=== PATIENT | female | born 1980 | race Hispanic/Latino ===

== ENCOUNTER → 2017-09-21 | Outpatient (CLI) | payer OTHER | END | disposition home or self-care (01) | LOC: RAH 11:08 | DX: N83.202 Unspecified ovarian cyst, left side (principal); N88.8 Other specified noninflammatory disorders of cervix uteri | CPT/HCPCS: 76830 ==

== ENCOUNTER 2017-10-18 06:56 | Day surgery (SDC) | payer OTHER ==
[2017-10-17 14:52] LABS: BASOPHILS % (AUTO) 0.5 % (0.0-5.0); EOSINOPHILS % (AUTO) 1.8 % (0.0-8.0); HEMATOCRIT 38.7 % (36-48); LYMPHOCYTES % (AUTO) 20.7 % (21.0-51.0); MEAN CORPUSCULAR HEMOGLOBIN 30.2 pg (27.0-33.0); MEAN CORPUSCULAR HGB CONC 34.6 g/dL (32.0-36.0); MEAN CORPUSCULAR VOLUME 87.4 fL (79-99); NUCLEATED RED BLOOD CELLS 0.1 % (0.0-0.19); PLATELET COUNT (AUTO) 253 K/uL (130-400); RED BLOOD CELL COUNT(AUTO) 4.43 MIL/uL (4.00-5.50); RED CELL DISTRIBUTION WIDTH 13.2 % (11.0-15.5); WHITE BLOOD COUNT (AUTO) 8.3 K/uL (4.8-10.8)
[2017-10-17 15:01] VITALS: BP 110/64
[~2017-10-18] VITALS: Ht 162.6 cm; Wt 68.8 kg
[2017-10-18] VITALS (13 sets, daily range): BP systolic 94–122; BP diastolic 46–80
[2017-10-18] MEDS: CEFAZOLIN SODIUM 1 GM VIAL IVP SCH ×2 (06:00→08:26)
[~2017-10-18 06:56] MED LIST: CALDOLOR 800MG+NS 250ML 250 ML IV SCH; LACTATED RINGERS 1000ML 1,000 ML IV SCH
[2017-10-18] MEDS ORDERED: MIDAZOLAM HCL 1 MG/ML 2ML VIAL ONE ×3 (07:27→08:19)
[2017-10-18] MEDS ORDERED: PROPOFOL 10 MG/ML 20ML VIAL IV ONE (07:27)
[2017-10-18] MEDS ORDERED: DEXAMETHASONE SOD PHOSPHATE 10MG/ML 1ML VIAL ONE (07:27)
[2017-10-18] MEDS ORDERED: GLYCOPYRROLATE 0.2 MG/ML 5 ML VIAL ONE (07:27)
[2017-10-18] MEDS ORDERED: LIDOCAINE PF 2% 5ML ABBOJECT ONE (07:27)
[2017-10-18] MEDS ORDERED: FENTANYL CITRATE PF 50 MCG/1 ML 2ML VIAL ONE (07:28)
== END 2017-10-18 11:08 | disposition home or self-care (01) ==
LOC: DAH 06:56 → EDSTATUS 14:00
PROVIDERS: ATTEND Obstetrics & Gynecology
DX: N92.1 Excessive and frequent menstruation with irregular cycle (principal); N90.89 Other specified noninflammatory disorders of vulva and perineum; N81.10 Cystocele, unspecified
CPT/HCPCS: 36415; 84703; 85025; 86850; 86900; 86901; 88305; A4218; A4351; A4355; J0690; J1100; J1741; J2001; J2250; J2704; J3010; J3490; J7030; J7120

== ENCOUNTER → 2017-11-14 | Outpatient (CLI) | payer OTHER ==
[2017-11-14 07:58] LABS: BASOPHILS % (AUTO) 0.4 % (0.0-5.0); EOSINOPHILS % (AUTO) 1.9 % (0.0-8.0); HEMATOCRIT 38.8 % (36-48); LYMPHOCYTES % (AUTO) 19.9 % (21.0-51.0); MEAN CORPUSCULAR HEMOGLOBIN 29.5 pg (27.0-33.0); MEAN CORPUSCULAR VOLUME 86.9 fL (79-99); MONOCYTES % (AUTO) 9.5 % (3.0-13.0); NEUTROPHILS % (AUTO) 68.3 % (40.0-77.0); PLATELET COUNT (AUTO) 250 K/uL (130-400); RED BLOOD CELL COUNT(AUTO) 4.46 MIL/uL (4.00-5.50); WHITE BLOOD COUNT (AUTO) 6.5 K/uL (4.8-10.8)
[2017-11-14 08:20] LABS: ALBUMIN 3.7 g/dL (3.5-5.0); BILIRUBIN,TOTAL 0.3 mg/dL (0.2-1.0); CREATININE 0.8 mg/dL (0.5-1.5); POTASSIUM 4.7 mmol/L (3.5-5.1); THYROID STIMULATING HORMONE 1.73 uIU/mL (0.36-3.74); TOTAL PROTEIN, SERUM 7.1 g/dL (6.0-8.3)
== END | disposition home or self-care (01) ==
LOC: LAB 07:29
PROVIDERS: ATTEND Family Medicine
DX: Z00.01 Encounter for general adult medical examination with abnormal findings (principal); R53.83 Other fatigue; R79.89 Other specified abnormal findings of blood chemistry
CPT/HCPCS: 36415; 80053; 80061; 82306; 84443; 85025

== ENCOUNTER → 2017-12-06 | Outpatient (CLI) | payer OTHER | END | disposition home or self-care (01) | LOC: RAH 07:10 | PROVIDERS: ATTEND Neurological Surgery | DX: M50.122 Cervical disc disorder at C5-C6 level with radiculopathy (principal); M79.601 Pain in right arm; R20.0 Anesthesia of skin | CPT/HCPCS: 72141 ==

== ENCOUNTER → 2018-05-08 | Outpatient (CLI) | payer OTHER | END | disposition home or self-care (01) | LOC: RAH 09:50 | PROVIDERS: ATTEND Physical Medicine & Rehabilitation | DX: R20.2 Paresthesia of skin (principal) | CPT/HCPCS: 70551 ==

== ENCOUNTER → 2019-03-12 | Outpatient (CLI) | payer OTHER ==
[2019-03-12 08:18] LABS: BASOPHILS % (AUTO) 0.5 % (0.0-5.0); EOSINOPHILS % (AUTO) 1.6 % (0.0-8.0); HEMATOCRIT 41.9 % (36-48); LYMPHOCYTES % (AUTO) 19.6 % (21.0-51.0); MEAN CORPUSCULAR HEMOGLOBIN 29.9 pg (27.0-33.0); MEAN CORPUSCULAR HGB CONC 34.2 g/dL (32.0-36.0); MEAN CORPUSCULAR VOLUME 87.4 fL (79-99); MONOCYTES % (AUTO) 8.1 % (3.0-13.0); NEUTROPHILS % (AUTO) 70.2 % (40.0-77.0); PLATELET COUNT (AUTO) 259 K/uL (130-400); RED BLOOD CELL COUNT(AUTO) 4.79 MIL/uL (4.00-5.50); RED CELL DISTRIBUTION WIDTH 12.9 % (11.0-15.5); WHITE BLOOD COUNT (AUTO) 6.3 K/uL (4.8-10.8)
[2019-03-12 08:48] LABS: BILIRUBIN,TOTAL 0.5 mg/dL (0.2-1.0); CREATININE 0.9 mg/dL (0.5-1.5); POTASSIUM 4.2 mmol/L (3.5-5.1); THYROID STIMULATING HORMONE 1.99 uIU/mL (0.36-3.74); TOTAL PROTEIN, SERUM 7.6 g/dL (6.0-8.3)
== END | disposition home or self-care (01) ==
LOC: LAB 07:56
PROVIDERS: ATTEND Nurse Practitioner Adult Health
DX: Z00.00 Encounter for general adult medical examination without abnormal findings (principal)
CPT/HCPCS: 36415; 80053; 80061; 82306; 84443; 85025

== ENCOUNTER → 2019-08-15 | Outpatient (CLI) | payer OTHER | END | disposition home or self-care (01) | LOC: RAH 10:05 | PROVIDERS: ATTEND Nurse Practitioner Adult Health | DX: N88.8 Other specified noninflammatory disorders of cervix uteri (principal); N81.4 Uterovaginal prolapse, unspecified | CPT/HCPCS: 76856 ==

== ENCOUNTER 2019-11-05 13:00 | Observation (INO) | payer OTHER ==
[~2019-11-05] VITALS: Ht 157.5 cm; Wt 69.5 kg
[2019-11-05 15:40] VITALS: BP 127/74
[2019-11-05 16:02] LABS: BASOPHILS % (AUTO) 0.4 % (0.0-5.0); EOSINOPHILS % (AUTO) 1.6 % (0.0-8.0); HEMATOCRIT 39.9 % (36-48); LYMPHOCYTES % (AUTO) 24.2 % (21.0-51.0); MEAN CORPUSCULAR HGB CONC 33.1 g/dL (32.0-36.0); MEAN CORPUSCULAR VOLUME 87.7 fL (79-99); MONOCYTES % (AUTO) 6.8 % (3.0-13.0); NEUTROPHILS % (AUTO) 66.7 % (40.0-77.0); PLATELET COUNT (AUTO) 240 K/uL (130-400); RED BLOOD CELL COUNT(AUTO) 4.55 MIL/uL (4.00-5.50); RED CELL DISTRIBUTION WIDTH 12.3 % (11.0-15.5); WHITE BLOOD COUNT (AUTO) 7.5 K/uL (4.8-10.8)
[2019-11-06] VITALS (24 sets, daily range): BP systolic 100–116; BP diastolic 47–70
[2019-11-06] MEDS ORDERED: PROPOFOL 10 MG/ML 20ML VIAL IV ONE (06:07)
[2019-11-06] MEDS ORDERED: LIDOCAINE PF 2% 5ML ABBOJECT ONE (06:07)
[2019-11-06] MEDS ORDERED: ROCURONIUM 10MG/1ML SYR 10 MG/ML ML ONE (06:08)
[2019-11-06] MEDS ORDERED: ONDANSETRON HCL 4 MG/2 ML VIAL ONE (06:08)
[2019-11-06] MEDS ORDERED: FENTANYL CITRATE PF 50 MCG/1 ML 2ML VIAL ONE ×2 (06:10→07:58)
[2019-11-06] MEDS ORDERED: MIDAZOLAM HCL 1 MG/ML 5ML VIAL ONE (06:15)
[2019-11-06] MEDS ORDERED: LACTATED RINGERS 1000ML 1,000 ML IV ONE (06:15)
[2019-11-06] MEDS: CEFAZOLIN SODIUM 1 GM VIAL ONE ×2 (06:38→07:00)
[2019-11-06] MEDS ORDERED: EPHEDRINE SULFATE 50 MG/ML AMPULE ONE (07:06)
[2019-11-06] MEDS ORDERED: GLYCOPYRROLATE 1 MG/5 ML SYRINGE ONE (07:57)
[2019-11-06] MEDS ORDERED: DEXAMETHASONE SOD PHOSPHATE 10MG/ML 1ML VIAL ONE (07:57)
[2019-11-06] MEDS ORDERED: ESTROGENS,CONJUGATED 0.625 MG/GM 42.5 GM VAG CRM VG ONE (07:57)
[2019-11-06] MEDS ORDERED: NEOSTIGMINE 5MG/5ML SYR IV ONE (07:57)
[2019-11-06] MEDS ORDERED: LACTATED RINGERS 1000ML 1,000 ML IV SCH (08:00)
[2019-11-06] MEDS ORDERED: CEFAZOLIN SODIUM 1 GM VIAL IVP ONE (08:00)
[2019-11-06] MEDS ORDERED: DOCUSATE SODIUM 100 MG CAP PO PRN (09:45)
[2019-11-06] MEDS ORDERED: MEPERIDINE HCL/PF 25 MG/0.5 ML AMPUL IV PRN (09:45)
[2019-11-06] MEDS ORDERED: PROMETHAZINE HCL 25 MG/ML 1ML AMPULE IM PRN ×2 (09:45)
[2019-11-06] MEDS ORDERED: BISACODYL 10 MG SUPP.RECT RC PRN (09:45)
[2019-11-06] MEDS ORDERED: SIMETHICONE 80 MG TAB.CHEW PO PRN (09:45)
[2019-11-06] MEDS ORDERED: IBUPROFEN 600 MG TABLET PO PRN (09:45)
[2019-11-06] MEDS ORDERED: ONDANSETRON HCL 4 MG/2 ML VIAL IVP PRN (09:45)
[2019-11-06] MEDS ORDERED: MEPERIDINE-PF 75 MG/ML SYG IM PRN (09:45)
[2019-11-06] MEDS ORDERED: ACETAMINOPHEN-CODEINE 300/30MG TAB PO PRN (09:45)
[2019-11-06] MEDS ORDERED: CALDOLOR 800MG+NS 250ML 250 ML IV PRN (09:45)
[2019-11-06] MEDS ORDERED: DiphenhydrAMINE HCL 50 MG/ML VIAL IVP PRN (09:45)
[2019-11-06] MEDS ORDERED: NALOXONE HCL 0.4 MG/1 ML ML IVP PRN ×2 (09:45)
[2019-11-06] MEDS: DEXTROSE 5 %-0.45 % NACL 1,000 ML IV PRN ×3 (11:14→23:34)
--- NOTE | 2019-11-06 11:20 | NUR ---
bleeding noted on epidural site. notified nadeem Mart crna. he said he will let somebody check it Addendum: 11/06/19 at 1143 by LORELEI GOMEZ RN Amended: Links added.
--- NOTE | 2019-11-06 11:29 | NUR ---
PATIENT ORIENTED TO ROOM. NO PAIN REPORTED. EPIDURAL IN PLACE AND INFUSING. OB PAD CLEAN AND DRY. VAGINAL PACKING IN PLACE. ADVISED PATIENT TO CALL WITH ANY NEEDS OR CONCERNS. CALL LIGHT LEFT IN REACH. PATIENT VOICED UNDERSTANDING. Addendum: 11/06/19 at 1130 by CARISA IBARRA LVN LVN PATIENT ARRIVED TO UNIT VIA BED FROM PACU ACCOMPANIED BY JIMMY TRIPATHI AT 0934.
--- NOTE | 2019-11-06 11:50 | NUR ---
aliya Mart crna checked dressing on epidural catheter, with bleeding and blood clot noted to site, replaced with new tegaderm. Addendum: 11/06/19 at 1202 by LORELEI GOMEZ RN Amended: Links added.
[2019-11-06] MEDS: CEFAZOLIN SODIUM 1 GM VIAL IVP SCH ×2 (16:02→23:33)
[2019-11-06] MEDS ORDERED: DURAMORPH PF1 MG/ML 10ML AMP IV ONE (16:43)
[2019-11-06] MEDS ORDERED: ROPIVACAINE 0.2% 100ML VIAL 100 ML EP SCH (17:30)
[2019-11-07 04:35] VITALS: BP 108/61
[2019-11-07 07:09] LABS: HEMATOCRIT 38.1 % (36-48); MEAN CORPUSCULAR HEMOGLOBIN 28.8 pg (27.0-33.0); MEAN CORPUSCULAR HGB CONC 33.1 g/dL (32.0-36.0); MEAN CORPUSCULAR VOLUME 87.2 fL (79-99); RED BLOOD CELL COUNT(AUTO) 4.37 MIL/uL (4.00-5.50); RED CELL DISTRIBUTION WIDTH 12.2 % (11.0-15.5); WHITE BLOOD COUNT (AUTO) 13.2 K/uL (4.8-10.8)
[2019-11-07 07:20] VITALS: BP 122/70
--- NOTE | 2019-11-07 08:25 | NUR ---
goel catheter removed, tip intact, vaginal packing removed, pericare done, informed pt to call for assistance to the bathroom, pt voiced understanding. Addendum: 11/07/19 at 0835 by LORELEI GOMEZ RN Amended: Links added.
[2019-11-07] MEDS ORDERED: ACETAMINOPHEN-CODEINE 300/30MG TAB ONE (09:52)
[2019-11-07] MEDS ORDERED: ACETAMINOPHEN-CODEINE 300/30MG TAB PO PRN (10:00)
[2019-11-07] MEDS ORDERED: ACET1TAB25 PO (10:21)
--- NOTE | 2019-11-07 10:50 | NUR ---
verbal and written discharge instructions given, informed of the follow up appointment, prescription given, all questions answered. informed to call the doctor for future concerns. pt voiced understanding to all things discussed. Addendum: 11/07/19 at 1110 by LORELEI GOMEZ RN Amended: Links added.
--- NOTE | 2019-11-07 11:07 | NUR ---
pt is dismissed in stable condition, brought to private car via wheelchair by cosme Mart pcp Addendum: 11/07/19 at 1108 by LORELEI GOMEZ RN Amended: Links added.
== END 2019-11-07 11:10 | disposition home or self-care (01) ==
LOC: DAHIP 11-06 06:10 → WSH 11-06 09:30 → EDSTATUS 11-06 13:00
PROVIDERS: ADMIT Obstetrics & Gynecology; ATTEND Obstetrics & Gynecology
DX: N81.2 Incomplete uterovaginal prolapse (principal); N94.12 Deep dyspareunia; N94.5 Secondary dysmenorrhea
CPT/HCPCS: 36415 ×2; 58260; 84703; 85025; 85027; 86850; 86900; 86901; 96365; 96366; 96375; 96376; A4213; A4215; A4221; A4222; A4223; A4344; A4351; A4510; A4600; A4663; A4930; G0378 ×25; J0690 ×4; J1100; J1741; J2001; J2250; J2274; J2405; J2704; J2710; J2795; J3010 ×2; J3490 ×2; J7120 ×2

== ENCOUNTER → 2020-01-29 | Outpatient (CLI) | payer OTHER ==
[~2020-01-29] MED LIST changes: +ACET1TAB25 PO; -CALDOLOR 800MG+NS 250ML 250 ML IV SCH; -LACTATED RINGERS 1000ML 1,000 ML IV SCH
[2020-01-29 11:54] LABS: APPEARANCE,URINE Clear (CLEAR); BILIRUBIN,URINE Negative (NEGATIVE); COLOR,URINE Yellow (YELLOW); GLUCOSE, URINE (UA) Negative (NEGATIVE); KETONES,URINE Trace mg/dL (NEGATIVE); LEUKOCYTE ESTERASE ,URINE Negative (NEGATIVE); NITRATE,URINE Negative (NEGATIVE); OCCULT BLOOD,URINE Negative (NEGATIVE); PROTEIN,URINE Negative (NEGATIVE)
[2020-01-29 12:03] LABS: BACTERIA,URINE Rare /HPF (None Seen); RBC,URINE 0-1 /HPF (0-1); SQUAMOUS EPITHELIAL CELL,UR Rare /HPF (0-2); WBC,URINE 0-1 /HPF (0-1)
== END | disposition home or self-care (01) ==
LOC: LAB 11:18
PROVIDERS: ATTEND Nurse Practitioner Adult Health
DX: R82.79 Other abnormal findings on microbiological examination of urine (principal)
CPT/HCPCS: 81001; 87088

== ENCOUNTER → 2020-01-30 | Outpatient (CLI) | payer OTHER | END | disposition home or self-care (01) | LOC: RAH 07:30 | PROVIDERS: ATTEND Nurse Practitioner Adult Health | DX: R31.9 Hematuria, unspecified (principal) | CPT/HCPCS: 76770 ==

== ENCOUNTER 2021-05-05 10:16 | Emergency (ER) | payer OTHER ==
[~2021-05-05] VITALS: Ht 157.5 cm; Wt 72.6 kg
[2021-05-05 10:17] VITALS: BP 137/83
[2021-05-05] MEDS ORDERED: IBUPROFEN 200 MG TAB ONE (11:26)
[2021-05-05] MEDS ORDERED: IBUPROFEN 600 MG TABLET PO ONE (12:00)
== END 2021-05-05 11:50 | disposition home or self-care (01) ==
LOC: EDH 10:16
DX: S50.12XA Contusion of left forearm, initial encounter (principal); S50.02XA Contusion of left elbow, initial encounter; S60.212A Contusion of left wrist, initial encounter; W01.0XXA Fall on same level from slipping, tripping and stumbling without subsequent striking against object, initial encounter; Y93.89 Activity, other specified; Y92.89 Other specified places as the place of occurrence of the external cause; Y99.8 Other external cause status
CPT/HCPCS: 73070; 73110; 73120

== ENCOUNTER 2021-06-09 20:48 | Emergency (ER) | payer OTHER ==
[~2021-06-09] VITALS: Ht 157.5 cm; Wt 72.6 kg
[2021-06-09] MEDS ORDERED: FAMOTIDINE 20MG VIAL IV ONE (22:30)
[2021-06-09] MEDS ORDERED: LIDOCAINE HCL 2% VISCOUS 15 ML UDCUP PO ONE ×2 (22:30→23:00)
[2021-06-09] MEDS ORDERED: ONDANSETRON 4MG INJ IVP ONE (22:30)
[2021-06-09] MEDS ORDERED: PANTOPRAZOLE 40 MG/VIAL IVP ONE (22:30)
[2021-06-09] MEDS ORDERED: METOCLOPRAMIDE 10 MG/2 ML VIAL IVP ONE (22:30)
[2021-06-09] MEDS ORDERED: DiphenhydrAMINE HCL 50 MG/ML VIAL IV ONE (22:30)
[2021-06-09] MEDS ORDERED: MAG/ALUM/SIMETH 30 ML UDCUP PO ONE (22:30)
[2021-06-09 22:48] LABS: BASOPHILS % (AUTO) 0.2 % (0.0-5.0); EOSINOPHILS % (AUTO) 2.1 % (0.0-8.0); HEMATOCRIT 40.6 % (36-48); LYMPHOCYTES % (AUTO) 27.1 % (21.0-51.0); MEAN CORPUSCULAR HEMOGLOBIN 29.3 pg (27.0-33.0); MEAN CORPUSCULAR VOLUME 88.8 fL (79-99); MONOCYTES % (AUTO) 8.3 % (3.0-13.0); NEUTROPHILS % (AUTO) 62.2 % (40.0-77.0); PLATELET COUNT (AUTO) 241 K/uL (130-400); RED BLOOD CELL COUNT(AUTO) 4.57 MIL/uL (4.00-5.50); RED CELL DISTRIBUTION WIDTH 12.1 % (11.0-15.5); WHITE BLOOD COUNT (AUTO) 8.1 K/uL (4.8-10.8)
[2021-06-09 22:57] LABS: CREATININE 0.9 mg/dL (0.5-1.5); POTASSIUM 4.1 mmol/L (3.5-5.1)
[2021-06-09 23:02] LABS: BILIRUBIN,TOTAL 0.3 mg/dL (0.2-1.0); TOTAL PROTEIN, SERUM 7.4 g/dL (6.0-8.3)
[2021-06-09] MEDS ORDERED: ONDA4TAB10 PO (23:42)
[2021-06-09] MEDS ORDERED: DICY20TA2 PO (23:42)
[2021-06-09] MEDS ORDERED: PANT40TA PO (23:42)
[2021-06-09] MEDS ORDERED: METO-296 PO (23:42)
[2021-06-10 00:06] VITALS: BP 131/70
== END 2021-06-10 00:13 | disposition home or self-care (01) ==
LOC: EDH 20:48
DX: K29.70 Gastritis, unspecified, without bleeding (principal); Z79.899 Other long term (current) drug therapy
CPT/HCPCS: 36415; 71045; 80053; 84484; 85025; 93005; 96374; 96375; 99284; C9113; J1200; J2405; J2765

== ENCOUNTER 2022-05-29 10:30 | Day surgery (SDC) | payer OTHER ==
[2022-05-29] VITALS (9 sets, daily range): BP systolic 94–115; BP diastolic 52–65
[~2022-05-29] VITALS: Ht 157.5 cm; Wt 70.8 kg
[~2022-05-29 10:30] MED LIST changes: -ACET1TAB25 PO; +PANT40TA PO; +SUCR1TAB2 PO; +vitamin D3
[2022-05-29] MEDS ORDERED: 0.9%NACL 1000ML 1,000 ML IV ONE (10:42)
[2022-05-29] MEDS ORDERED: LIDOCAINE PF 100MG/5ML (2%) SYRINGE 5ML ONE (11:16)
[2022-05-29] MEDS ORDERED: PROPOFOL 10 MG/ML 20ML VIAL IV ONE (11:16)
[2022-05-29] MEDS ORDERED: MIDAZOLAM HCL 1 MG/ML 2ML VIAL ONE (11:16)
== END 2022-05-29 12:32 | disposition home or self-care (01) ==
LOC: DAH 10:30 → ENDO 10:30
PROVIDERS: ATTEND Internal Medicine Gastroenterology
DX: R10.13 Epigastric pain (principal); Z20.822 Contact with and (suspected) exposure to COVID-19; K44.9 Diaphragmatic hernia without obstruction or gangrene; R19.7 Diarrhea, unspecified; K31.89 Other diseases of stomach and duodenum; K21.9 Gastro-esophageal reflux disease without esophagitis; K80.20 Calculus of gallbladder without cholecystitis without obstruction; Z72.89 Other problems related to lifestyle; Z90.710 Acquired absence of both cervix and uterus; Z79.899 Other long term (current) drug therapy
CPT/HCPCS: 87426; 43239; 87338; 36415; J7030 ×2; J2001; J2250; J2704; A4620; A4215 ×2; A4223; A4657; A4222; A4221; A4663; A4216; A4606

== ENCOUNTER 2022-06-14 07:08 | Day surgery (SDC) | payer OTHER ==
[2022-06-12 14:26] LABS: BASOPHILS % (AUTO) 0.5 % (0.0-5.0); HEMATOCRIT 40.6 % (36-48); LYMPHOCYTES % (AUTO) 24.1 % (21.0-51.0); MEAN CORPUSCULAR HEMOGLOBIN 28.8 pg (27.0-33.0); MEAN CORPUSCULAR HGB CONC 32.5 g/dL (32.0-36.0); MEAN CORPUSCULAR VOLUME 88.5 fL (79-99); MONOCYTES % (AUTO) 6.9 % (3.0-13.0); NEUTROPHILS % (AUTO) 67.2 % (40.0-77.0); PLATELET COUNT (AUTO) 217 K/uL (130-400); RED BLOOD CELL COUNT(AUTO) 4.59 MIL/uL (4.00-5.50); RED CELL DISTRIBUTION WIDTH 12.4 % (11.0-15.5); WHITE BLOOD COUNT (AUTO) 7.7 K/uL (4.8-10.8)
[2022-06-12 14:59] LABS: ALBUMIN 3.9 g/dL (3.5-5.0); CREATININE 0.8 mg/dL (0.5-1.5); POTASSIUM 3.9 mmol/L (3.5-5.1); TOTAL PROTEIN, SERUM 7.1 g/dL (6.0-8.3)
[2022-06-13 08:42] VITALS: BP 114/64
[~2022-06-14] VITALS: Ht 157.5 cm; Wt 69.1 kg
[2022-06-14] VITALS (16 sets, daily range): BP systolic 101–111; BP diastolic 54–71
[~2022-06-14 07:08] MED LIST changes: +0.9% NACL 500ML IV.SOLN 500 ML IV SCH; +0.9%NACL 1000ML 1,000 ML IV ONE; +BUPIVACAINE/PF 0.5% 30ML VIAL ONE; +CEFAZOLIN SODIUM 2 GM VIAL IVPB SCH; +DICY20TA3 PO; +VITAD50000 PO; -vitamin D3
[2022-06-14] MEDS ORDERED: MIDAZOLAM HCL 1 MG/ML 2ML VIAL ONE ×2 (07:09→07:44)
[2022-06-14] MEDS ORDERED: ONDANSETRON 4MG INJ ONE (07:38)
[2022-06-14] MEDS ORDERED: LIDOCAINE HCL MPF 1% 5ML VIAL ONE (07:38)
[2022-06-14] MEDS ORDERED: PROPOFOL 10 MG/ML 20ML VIAL IV ONE (07:39)
[2022-06-14] MEDS ORDERED: FENTANYL CITRATE PF 50 MCG/1 ML 2ML VIAL ONE ×2 (07:39→08:47)
[2022-06-14] MEDS ORDERED: ROCURONIUM 10MG/1ML SYR 10 MG/ML ML ONE (07:39)
[2022-06-14] MEDS ORDERED: KETOROLAC 30MG VIAL (30MG/ML) ONE (09:09)
[2022-06-14] MEDS ORDERED: NEOSTIGMINE 5MG/5ML SYR IV ONE (09:09)
[2022-06-14] MEDS ORDERED: GLYCOPYRROLATE 1 MG/5 ML SYRINGE ONE (09:09)
[2022-06-14] MEDS ORDERED: MEPERIDINE-PF 25 MG/ML SYG ONE ×2 (10:02→10:10)
== END 2022-06-14 11:37 | disposition home or self-care (01) ==
LOC: DAH 07:08
PROVIDERS: ATTEND Student in an Organized Health Care Education/Training Program
DX: K80.10 Calculus of gallbladder with chronic cholecystitis without obstruction (principal); Z20.822 Contact with and (suspected) exposure to COVID-19; Z90.710 Acquired absence of both cervix and uterus; Z98.51 Tubal ligation status; Z79.899 Other long term (current) drug therapy
CPT/HCPCS: 80053; 85025; 87426; 36415; 47562; A6260; A6207; J7030 ×2; J3010 ×2; J3490 ×3; J2710; J2250 ×2; J2704; J2405; J1885; J2175 ×2; J0690; A6206; C1769 ×3; G0168; A4649 ×2; A4215; A4223; A4222; A4221; A4663; A4600